=== PATIENT | female | born 1995 | race Caucasian/White ===

== ENCOUNTER → 2020-03-30 10:17 | Outpatient (CLI) | payer OTHER, SELFPAY ==
[2020-03-30 12:15] LABS: Vitamin D,25 Hydroxy 19.2 ng/mL
[2020-03-30 12:19] LABS: Hematocrit 39.7 % (37-47); Mean Corp Hgb Conc 32.7 g/dL (32-36); Mean Corpuscular Hgb 29.1 pg (27.0-32.0); Mean Corpuscular Volume 88.8 fL (81-99); Mean Platelet Vol. 9.5 fl (6.2-12.0); Platelet Count 273 K/mm3 (150-450); RBC Distribution Width CV 12.2 % (11.6-14.6); RBC Distribution Width SD 39.9 fl (35.1-43.9); Red Blood Count 4.47 M/mm3 (4.2-5.4); White Blood Count 4.2 K/mm3 (4.4-11.0)
[2020-03-30 14:00] LABS: ALB/GLOB Ratio 1.2 RATIO (0.9-2.4); AST(SGOT) 24 U/L (15-37); Alanine Aminotransfer ALT/SGPT 27 U/L (13-56); Albumin, Serum 4.5 g/dL (3.2-5.0); Alkaline Phosphatase 60 U/L (45-117); Anion Gap 5 (5-15); BUN 13 mg/dL (7-18); BUN/Creat Ratio 16.1 RATIO (10-20); Calcium,Total 9.2 mg/dL (8.5-10.1); Chloride 103 mmol/L (98-107); Creatinine, Serum 0.81 mg/dL (0.55-1.02); EST Glomerular Filtration Rate 93 mL/min (>60); Est Glom Filt Rate - Afr Amer 113 mL/min (>60); Estradiol 42.1 pg/mL; Follicle Stimulating Hormone 6.4 mIU/mL; Free T3 2.8 pg/mL (2.18-3.98); Globulin 3.7 g/dL (2.2-4.2); Glucose 77 mg/dL (74-106); Potassium 3.8 mmol/L (3.5-5.1); Prolactin 7.3 ng/mL; Protein, Total 8.2 g/dL (6.4-8.2); Sodium Level 138 mmol/L (136-145); Thyroid Stim Hormone (TSH) 0.99 uIU/mL (0.358-3.74)
[2020-03-31 14:10] LABS: Thyroid Peroxidase AB < 9 IU/mL (0-34)
[2020-03-31 16:23] LABS: Sex Hormone-binding Globulin 79.2 nmol/L (24.6-122.0); Thyroglobulin Antibody < 1.0 IU/mL (0.0-0.9)
[2020-04-03 15:16] LABS: HPV Reflexed? NOT INDICATED
[2020-04-04 21:20] LABS: 17-Hydroxyprogesterone 29 ng/dL (.)
== END ==
PROVIDERS: Visit Provider Obstetrics & Gynecology
DX: Z12.4 Encounter for screening for malignant neoplasm of cervix (principal); Z11.3 Encounter for screening for infections with a predominantly sexual mode of transmission; E03.9 Hypothyroidism, unspecified; N92.5 Other specified irregular menstruation
CPT/HCPCS: 36415; 80053; 82306; 82533; 82627; 82670; 83001; 83498; 84146; 84270; 84403; 84439; 84443; 84481; 85027; 86376; 86800; 88175; 82626; G0145

== ENCOUNTER → 2021-09-15 | Outpatient (CLI) | payer OTHER, SELFPAY ==
--- NOTE | 2021-09-15 09:09 | US_ITS ---
EXAM: US RIGHT LOWER EXTREMITY NON-VASCULAR, COMPLETE CLINICAL INDICATION: RIGHT GROIN LUMP TECHNIQUE: Real-time ultrasound scan of the right lower extremity with image documentation. This report was created using [employer] report generation technology. COMPARISON: None. FINDINGS: See Impression. US/Ext Non Vasc Limited/Soft Tiss IMPRESSION: Palpable lump/swelling at the upper medial thigh/lower groin appears to represent 3 separate isoechoic lipomas. These measure 0.9 x 2.0 x 0.7 cm, 1.1 x 2.6 x 0.8 cm, and 1.8 x 1.7 x 1.3 cm. Electronically Signed: Stevo Peralta MD at 11:27 EDT ,
== END | disposition home or self-care (01) ==
PROVIDERS: Referring Provider Obstetrics & Gynecology; Visit Provider Obstetrics & Gynecology
DX: R22.9 Localized swelling, mass and lump, unspecified (principal); R19.07 Generalized intra-abdominal and pelvic swelling, mass and lump
CPT/HCPCS: 76882